=== PATIENT | male | born 1995 | race Caucasian/White ===

== ENCOUNTER 2017-01-27 00:55 | Emergency (ER) | payer OTHER ==
[2017-01-27] MEDS ORDERED: OXYCODONE-ACETAMINOPHEN 5-325 MG TABLET PO ONE (02:07)
[2017-01-27] MEDS ORDERED: LIDOCAINE 1% INJ-PF (10 MG/ML) 30 ML SDV INJ ONE (02:07)
[2017-01-27] MEDS ORDERED: CLINDAMYCIN HCL 150 MG CAPSULE PO ONE ×2 (03:14)
[2017-01-27] MEDS ORDERED: HYDROCODONE/ACETAMINOPHEN 5-325 MG 6 TAB/DSPK PO PRN (03:14)
--- NOTE | 2017-01-27 03:14 | ER Document Report ---
ED Skin Rash/Insect Bite/Abscs - General Chief Complaint: Abscess Stated Complaint: MOUTH WOUND/DIABETIC Time Seen by Provider: 01/27/17 01:40 Mode of Arrival: Ambulatory Information source: Patient - HPI Patient complains to provider of: Tender/swollen area Onset: Other - 3 days Onset/Duration: Gradual, Persistent, Worse Quality of pain: Achy, Pressure Severity: Moderate Pain Level: 3 Skin Character: Abscess Quality of rash: Painful Exacerbated by: Denies Relieved by: Denies Similar symptoms previously: Yes Recently seen / treated by doctor: Yes Notes: Patient is a 21-year-old male with history of diabetes who presents to the emergency room complaining of swelling and pain to right face just lateral to the mouth, symptoms have been worsening over the past 2-3 days, he was previously seen by his primary care provider and started on Bactrim which he is taken 4 doses of now, he was seen earlier in the evening at [facility] and they started him on Keflex but provided a prescription which he could not yet fill as the pharmacies are closed, since he was discharged home from that the swelling has worsened prompting him to come to the emergency room, he denies any fever, no injury, the area started out like a pimple 3 days ago and patient squeezed the area got out sebaceous fluid consistent with a pimple, since then it has gotten worse - Related Data Allergies/Adverse Reactions: No Known Allergies Allergy (Unverified 01/27/17 00:59) Past Medical History - General Information source: Patient - Social History Smoking Status: Never Smoker Family History: None, Reviewed & Not Pertinent Endocrine Medical History: Reports: Hx Diabetes Mellitus Type 1 Renal/ Medical History: Denies: Hx Peritoneal Dialysis - Immunizations Hx Diphtheria, Pertussis, Tetanus Vaccination: No Review of Systems - Review of Systems Constitutional: No symptoms reported EENT: No symptoms reported Cardiovascular: No symptoms reported Respiratory: No symptoms reported Gastrointestinal: No symptoms reported Genitourinary: No symptoms reported Male Genitourinary: No symptoms reported Musculoskeletal: No symptoms reported Skin: See HPI Hematologic/Lymphatic: No symptoms reported Neurological/Psychological: No symptoms reported -: Yes All other systems reviewed and negative Physical Exam - Vital signs Vitals: Pulse Resp BP Pulse Ox 78 15 153/92 H 99 01/27/17 00:59 01/27/17 00:59 01/27/17 00:59 01/27/17 00:59 - Notes Notes: - General General appearance: Appears well, Alert In distress: None - HEENT Head: Normocephalic, Atraumatic Eyes: Normal Conjunctiva: Normal Extraocular movements intact: Yes Eyelashes: Normal Pupils: PERRL - Respiratory Respiratory status: No respiratory distress - Cardiovascular Rhythm: Regular - Abdominal Inspection: Normal - Back Back: Normal - Extremities General upper extremity: Normal inspection General lower extremity: Normal inspection - Neurological Neuro grossly intact: Yes Orientation: AAOx4 Juan Coma Scale Eye Opening: Spontaneous [place] Coma Scale Verbal: Oriented [place] Coma Scale Motor: Obeys Commands Juan Coma Scale Total: 15 - Psychological Associated symptoms: Normal affect, Normal mood - Skin Skin Temperature: Warm Skin Moisture: Dry Skin Color: Normal - HEENT Mouth/Lips: Other - Chest lateral to the right side of the mouth is an area of increased swelling, erythema, tenderness, with a small central scab, consistent with subcutaneous abscess Course - Re-evaluation Re-evalutation: 01/27/17 03:35 Incision and drainage was performed on the abscess to the right face, a moderate amount of purulent fluid was expressed, patient was advised to discontinue Bactrim as it does not appear to be working for him, he was advised not to start the Keflex and was placed on clindamycin, provided with pain medication as well as nausea medication which she reports he sometimes gets with pain medication, advised to follow-up with his primary care provider or return if symptoms worsen, patient and mother at bedside acknowledge understanding and agreement with this plan - Vital Signs Vital signs: Temp Pulse Resp BP Pulse Ox 98.7 F 70 16 144/88 H 97 01/27/17 03:24 01/27/17 03:24 01/27/17 03:24 01/27/17 03:24 01/27/17 03:24 Procedures - Incision and Drainage Right Face Time completed: 03:32 Type: Simple Anesthetic type: 1% Lidocaine mL's of anesthetic: 2 Blade size: 11 I&D procedure: Chlorprep applied Incision Method: Incision made by scalpel Amount/type of drainage: 2 cc purulent and sanguinous fluid Adult Head Front/Back picture: 1 - Subcutaneous abscess Discharge - Discharge Clinical Impression: Facial abscess Condition: Stable Disposition: HOME, SELF-CARE Instructions: Abscess ([facility]), Oral Narcotic Medication ([facility]), Post Incision and Drainage Additional Instructions: Follow up with your primary care provider in one to 2 days. Return to the emergency room immediately if symptoms worsen or any additional concerns. Prescriptions: Clindamycin HCl [Cleocin 150 mg Capsule] 450 mg PO Q6 10 Days capsule Oxycodone HCl/Acetaminophen [Percocet 5-325 mg Tablet] 1 - 2 tab PO ASDIR PRN # 15 tablet PRN Reason: Forms: Return to Work
[2017-01-27] MEDS ORDERED: ONDANSETRON ODT 4 MG TAB (6 TAB/DSPK) PO PRN (03:27)
[2017-01-27 03:28] VITALS: BP 144/88
== END 2017-01-27 03:45 | disposition home or self-care (01) ==
LOC: ER 00:55
PROC: 0H91XZZ Drainage of Face Skin, External Approach (ICD-10-PCS; principal; 2017-01-27)
DX: L02.01 Cutaneous abscess of face (principal); R22.0 Localized swelling, mass and lump, head
CPT/HCPCS: 99283; 10060; J3490